=== PATIENT | female | born 1995 | race Two or more races ===

== ENCOUNTER 2019-01-07 11:21 | Observation (INO) | payer MEDICAID ==
[~2019-01-07] VITALS: Ht 149.9 cm; Wt 65.0 kg
[2019-01-07] MEDS ORDERED: IV RINGERS,LACTATED 1000ML 1,000 ML IV SCH (12:00)
[2019-01-07 12:17] LABS: BILIRUBIN,URINE SMALL (NEG); CLARITY,URINE CLEAR; COLOR,URINE AMBER; NITRITE,URINE NEGATIVE (NEG); PROTEIN,URINE 30 mg/dL (NEG-TRACE)
[2019-01-07 12:34] LABS: SQUAMOUS EPITHELIAL CELL,UR MANY /LPF
[2019-01-07 12:37] LABS: BACTERIA,URINE MODERATE /HPF (0-FEW); RBC,URINE 0 /HPF (0-2)
[2019-01-13] MEDS ORDERED: IBUP-1027 PO (09:06)
[2019-01-13] MEDS ORDERED: HYDR-3164 PO (09:06)
== END 2019-01-07 14:06 | disposition home or self-care (01) ==
LOC: 3 SO LND 11:21
PROVIDERS: ADMIT Specialist; ATTEND Specialist
DX: O36.8130 Decreased fetal movements, third trimester, not applicable or unspecified (principal); O26.893 Other specified pregnancy related conditions, third trimester; N89.8 Other specified noninflammatory disorders of vagina; Z3A.39 39 weeks gestation of pregnancy
CPT/HCPCS: 81001; 87086; G0378; G0379; 59025